=== PATIENT | female | born 1965 | race Caucasian/White ===

== ENCOUNTER → 2021-01-04 11:18 | Outpatient (CLI) | payer OTHER, SELFPAY ==
--- NOTE | 2021-01-04 12:41 | NEURO ---
NCS and/or EMG Patient Report Ordering Doctor: Philip Roy DATE OF SERVICE: 01/04/21 Indication: Numbness in the fourth toe of the right lower extremity following a crush injury at work. She will also experience intermittent shooting pain that originates at that toe and radiates up to the knee. Symptoms are exacerbated by weightbearing. Evaluate for peripheral nerve injury. Findings: Nerve conduction studies were performed in the right lower extremity. The right peroneal motor study recording the extensor digitorum brevis showed a normal amplitude, normal distal latency and normal conduction velocity. No conduction block or focal slowing was present across the fibular neck. The right tibial motor study recording the abductor hallucis brevis showed a normal amplitude, normal distal latency and normal conduction velocity. Right sural sensory response showed a normal amplitude and conduction velocity. Right superficial peroneal sensory response showed a normal amplitude and conduction velocity. Needle EMG of the right lower extremity and lumbar paraspinal muscles was performed. No denervation was present in any muscle. All motor unit morphology, activation and recruitment patterns were normal. Impression: This is a normal study, but limited study. There is no electrophysiologic evidence of lumbosacral radiculopathy, peroneal neuropathy, or peripheral neuropathy in the right lower extremity. Please note: electrodiagnostic studies are insensitive in detecting an isolated dorsal digital neuropathy. In this case, the utility of such an examination is limited to ruling out other potential etiologies (e.g. peroneal neuropathy, lumbosacral radiculopathy) for the patient's symptomatology. Clinical correlation is recommended. Tu Brown D.O.
== END ==
PROVIDERS: PCP Family Medicine; Referring Provider Podiatrist Foot & Ankle Surgery; Visit Provider Podiatrist Foot & Ankle Surgery
DX: S92.511D Displaced fracture of proximal phalanx of right lesser toe(s), subsequent encounter for fracture with routine healing (principal)
CPT/HCPCS: 95886; 95908